=== PATIENT | female | born 1995 | race Caucasian/White ===

== ENCOUNTER 2021-03-17 09:33 | Emergency (ER) | payer OTHER, SELFPAY ==
--- NOTE | 2021-03-17 09:57 | ED.NAVMDI ---
HPI - Nausea/Vomiting/Diarrhea General Chief complaint: Nausea/Vomiting/Diarrhea Stated complaint: abd pain/diarrhea Time Seen by Provider: 03/17/21 09:58 Source: patient Mode of arrival: ambulatory Limitations: no limitations History of Present Illness HPI Narrative: Bipin Harper is a 25 yo female with no PMH who comes to the [facility] with diarrhea since Friday after returning from [place]. [facility] physician cannot get her into the office and so she is here because she says she discussed consistent diarrhea since returned on Friday- [employer] allergy ate only chicken and pasta in [place] Related Data Allergies Allergy/AdvReac Type Severity Reaction Status Date / Time Penicillins Allergy Mild RASH Verified 03/17/21 09:56 Review of Systems Review of Systems: CONSTITUTIONAL: Denies fever, chills, sweats. EYES: Denies visual changes, redness, discharge. ENT: Denies rhinorrhea, congestion, sore throat, otalgia. CARDIOVASCULAR: Denies chest pain, palpitations, edema. RESPIRATORY: Denies dyspnea, wheezing, cough GASTROINTESTINAL: Denies abdominal pain, nausea, vomiting, intermittent diarrhea, always after eating and sometimes middle of night. GENITOURINARY: Denies dysuria, hematuria, abnormal discharge SKIN: Denies rash or itching. NEUROLOGIC: Denies numbness, or focal weakness. PSYCHIATRIC: Denies anxiety or depression. [facility] Social History Social History (Updated 03/17/21 @ 10:18 by Kelly Wilson CNP) Smoking status: Never smoker Alcohol intake: current Comments At time of signature, I agree with nursing past medical, surgical, social and family history. There is no relevant family history pertinent to the presenting complaint. Exam Narrative: GENERAL: This is a well-nourished, well-developed patient, in mild distress. HEAD: normocephalic, atraumatic. EYES:. Sclera clear/white. Vision is grossly intact. EARS: External ears normal, . Hearing grossly intact. NOSE: External nose normal without nasal discharge, nares without redness, no rhinorrhea. THROAT: Mucous membranes moist, NECK: Neck supple, non-tender CARDIOVASCULAR: Regular rate and rhythm without murmurs, gallops, or rubs. RESPIRATORY: Clear to auscultation. Breath sounds equal bilaterally. No wheezes, rales, or rhonchi. GASTROINTESTINAL: Abdomen soft, non-tender, SKIN: warm, intact with no suspicious lesions or rash, good texture and turgor. NEURO: awake, alert, and oriented to person, place and time. There were no obvious focal neurologic abnormalities. Steady gait EXTREMITIES: Normal range of motion. BACK: Nontender without deformity Course Course Emergency Course: Patient here with diarrhea since returning from [place] on Friday Started on Pepto-Bismol, Imodium AD, Protonix, Zofran if diarrhea continues she is to call On Friday and asked to get a stool specimen Level of Care: Express Care Visit Vital Signs Vital signs: Vital Signs Temperature 98.1 F 03/17/21 10:00 Pulse Rate 77 03/17/21 10:00 Respiratory Rate 16 03/17/21 10:00 Blood Pressure 124/74 03/17/21 10:00 Pulse Oximetry 100 03/17/21 10:00 Temperature 98.1 F 03/17/21 10:00 Pulse Rate 77 03/17/21 10:00 Respiratory Rate 16 03/17/21 10:00 Blood Pressure 124/74 03/17/21 10:00 Pulse Oximetry 100 03/17/21 10:00 MDM - Nausea/Vomiting/Diarrhea Differential Diagnosis Differential diagnosis: Likely traveler's diarrhea, food poisoning, gastroenteritis, drug-induced nausea and vomiting, dehydration and other Lab Data Labs: Urine Glucose Negative Reference Range: Negative Urine Bilirubin Negative Reference Range: Negative Urine Ketone Negative Reference Range: Negative Urine Specific [place] 1.020
[2021-03-17 10:00] VITALS: BP 124/74; PULSE 77; RESP 16; TEMP 36.7; O2SAT 100
== END 2021-03-17 10:25 | disposition home or self-care (01) ==
PROVIDERS: Emergency Provider Nurse Practitioner
DX: K52.9 Noninfective gastroenteritis and colitis, unspecified (principal)
CPT/HCPCS: 81003; 99213; G0463

== ENCOUNTER 2021-04-09 17:55 | Emergency (ER) | payer OTHER, SELFPAY ==
[2021-04-09 18:02] VITALS: BP 134/92; PULSE 79; RESP 16; TEMP 36.8; O2SAT 99
--- NOTE | 2021-04-09 18:02 | ED.WOUNDLAC ---
HPI - Wound/Laceration General Chief Complaint: Wound/Laceration Stated Complaint: Finger Lac Time Seen by Provider: 04/09/21 18:02 Source: patient, family, RN notes reviewed and old records reviewed Mode of arrival: ambulatory Limitations: no limitations History of Present Illness HPI narrative: 25-year-old female presents to the [facility] with a skin flap to the end of her thumb, left hand. States she cut it approximately 20 minutes prior to arrival. States that she was cutting onions. Onset (ago): minute(s) (20) Related Data Home Medications Medication Instructions Recorded Confirmed No Home Medications 04/09/21 04/09/21 Allergies Allergy/AdvReac Type Severity Reaction Status Date / Time Penicillins Allergy Mild RASH Verified 03/17/21 09:56 Review of Systems Review of Systems: All systems reviewed & are unremarkable except as noted in HPI and below Constitutional: Constitutional: Reports no additional constitutional complaints, Denies chills and Denies fever(s) Eyes: Eyes: Reports no additional eye complaints ENT: Reports system reviewed and no additional complaints, except as documented Cardiovascular: Cardiovascular: Reports no additional cardiovascular complaints, Denies chest pain and Denies dyspnea Respiratory: Respiratory: Reports no additional respiratory complaints, Denies cough and Denies dyspnea Gastrointestinal: Gastrointestinal: Reports no additional gastrointestinal complaints, Denies abdominal pain, Denies nausea and Denies vomiting Musculoskeletal: Musculoskeletal: Reports no additional musculoskeletal complaints Integumentary/Breasts: Skin/Breast: Reports as per HPI and Reports wounds (skin flap) Neurologic: Reports system reviewed and no additional complaints, except as documented Psychiatric: Psychiatric: Reports no additional psychiatric complaints Allergic/Immunologic: Allergic/Immunologic: Reports no additional allergic/immunologic complaints PMFSH Social History Social History Smoking status: Never smoker Alcohol intake: current Comments At the time of my signature, I reviewed and agree with the nursing past medical, surgical, social, and family history. There is no relevant family history pertinent to the patient complaint. Exam Const: General: healthy appearing, no acute distress and alert Nutritional Appearance: well nourished Orientation/consciousness: patient oriented x3 Limitations: no limitations HENMT: Head: normal to inspection Ears: external ears normal Eyes: Pupils: Equal, round and reactive pupils present Neck: Neck: normal visual inspection, no lymphadenopathy and no meningeal signs Chest: Chest palpation & inspection: normal inspection of the chest Resp: Effort & Inspection: normal respiratory effort Auscultation: clear to auscultation bilaterally Cardio: Rate: regular rate Rhythm: regular rhythm : General: Yes no CVA tenderness Back/Spine/Pelvis: Back: no CVA tenderness Skin: General skin exam: normal color Wounds: wounds noted Other: Flap of skin and of left thumb, almost a complete avulsion. Bleeding is controlled. No redness or signs of infection. Neuro: General: patient oriented x3, moves all extremities, no meningeal signs and no focal motor deficits Cranial nerves: Yes Equal, round and reactive pupils present Speech: normal speech Gait exam (Neuro): Normal gait present Extrem: General: normal to inspection Psych: Appearance: grossly normal and well kempt Mental Status: mental status grossly normal Affect: normal affect Attitude: cooperative Thought content: Yes Normal thought content present Course Course Emergency Course: Discharge instructions reviewed with patient, as well as provided in writing per nursing staff. The instructions also include specific and strict return/GO TO THE ER as well as f/u information. All questions have been answered, and the patient deny
[2021-04-09] MEDS: TETANUS,DIPHTHERIA,AC PERTUSSIS ADULT (0.5 ML) BOOSTRIX IM (18:16)
== END 2021-04-09 18:33 | disposition home or self-care (01) ==
PROVIDERS: Emergency Provider Nurse Practitioner
DX: S61.012A Laceration without foreign body of left thumb without damage to nail, initial encounter (principal); W45.8XXA Other foreign body or object entering through skin, initial encounter; Y93.G1 Activity, food preparation and clean up; Z23 Encounter for immunization
CPT/HCPCS: 12001; 90471; 90715; 99212; G0463

== ENCOUNTER 2021-08-15 08:24 | Emergency (ER) | payer OTHER, SELFPAY ==
[2021-08-15 08:33] VITALS: BP 136/71; PULSE 73; RESP 16; TEMP 37.4; O2SAT 100
--- NOTE | 2021-08-15 08:39 | ED.URI ---
HPI - URI/Sore Throat General Chief Complaint: Upper Respiratory Infection Stated Complaint: sore throat Time Seen by Provider: 08/15/21 08:39 Source: patient Mode of arrival: ambulatory Limitations: no limitations History of Present Illness HPI Narrative: 25-year-old male presents with complaint of sore throat, intermittent postnasal drainage for 10 to 12 days. Has been taking Sharifa with no relief. States that sore throat is constant. Has been taking ibuprofen, 2 to 3 doses a day. Denies fever or chill. No cough. Concerned she may have strep or sinus infection. All systems reviewed and negative except as noted above. Related Data Home Medications Medication Instructions Recorded Confirmed escitalopram oxalate 10 mg tablet 1 tablet PO DAILY 08/15/21 08/15/21 Allergies Allergy/AdvReac Type Severity Reaction Status Date / Time Penicillins Allergy Mild RASH Verified 08/15/21 08:33 Review of Systems Review of Systems: CONSTITUTIONAL: Denies fever, chills, or sweats. EYES: Denies visual changes, redness, or discharge. ENT: Denies rhinorrhea, congestion. Reports postnasal drainage and sore throat. CARDIOVASCULAR: Denies chest pain, palpitations, or edema. RESPIRATORY: Denies cough or dyspnea. GASTROINTESTINAL: Denies abdominal pain, nausea, vomiting, or diarrhea. GENITOURINARY: Denies dysuria or hematuria. SKIN: Denies rash or itching. MUSCULOSKELETAL: Denies back pain, joint pain, or myalgia. NEUROLOGIC: Denies headache, numbness, or weakness. PSYCHIATRIC: Denies anxiety or depression. All other systems reviewed are negative, except as documented in HPI. PMFSH Social History Social History Smoking status: Never smoker Alcohol intake: current Comments At time of signature, agree with nursing past medical, surgical, social and family history. There is no relevant family history pertinent to the presenting complaint. Exam Narrative: GENERAL: This is a well-nourished, well-developed patient, in no apparent distress. HEAD: normocephalic, atraumatic. EYES: PERRL. Sclera clear/white. Vision is grossly intact. EARS: External ears normal, auditory canals clear and without drainage. Fluid to bilateral TMs, opaque, dull light reflex. NOSE: External nose normal with erythema to both nares, clear nasal drainage. THROAT: Mucous membranes moist, erythema to posterior pharynx with clear postnasal drainage. NECK: Neck supple, non-tender without lymphadenopathy, masses or thyromegaly. CARDIOVASCULAR: Regular rate and rhythm without murmurs, gallops, or rubs. RESPIRATORY: Clear to auscultation. Breath sounds equal bilaterally. No wheezes, rales, or rhonchi. SKIN: warm, Dry, intact with no suspicious lesions or rash, good texture and turgor. NEURO: awake, alert, and oriented to person, place and time. There were no obvious focal neurologic abnormalities. EXTREMITIES: No joint tenderness, effusion, or edema noted. Course Course Level of Care: Express Care Visit Vital Signs Vital signs: Vital Signs Temperature 37.4 C 08/15/21 08:33 Pulse Rate 73 08/15/21 08:33 Respiratory Rate 16 08/15/21 08:33 Blood Pressure 136/71 08/15/21 08:33 Pulse Oximetry 100 08/15/21 08:33 Oxygen Delivery Room Air 08/15/21 08:33 Temperature 37.4 C 08/15/21 08:33 Pulse Rate 73 08/15/21 08:33 Respiratory Rate 16 08/15/21 08:33 Blood Pressure 136/71 08/15/21 08:33 Pulse Oximetry 100 08/15/21 08:33 Oxygen Delivery Room Air 08/15/21 08:33 Reviewed MDM - URI/Sore Throat MDM Narrative Medical decision making narrative: Negative rapid strep. Will prescribe ABX for serous otitis media, duration of sore throat almost 2 weeks. Patient is aware of diagnosis, understands and agrees to treatment plan. Anticipatory guidance given. Patient agrees to follow-up as directed and is aware of reasons to seek care at the emergency department. Portions of
== END 2021-08-15 08:55 | disposition home or self-care (01) ==
PROVIDERS: Emergency Provider Nurse Practitioner Family
DX: J02.9 Acute pharyngitis, unspecified (principal); H65.03 Acute serous otitis media, bilateral; F41.9 Anxiety disorder, unspecified; F32.A Depression, unspecified
CPT/HCPCS: 87081; 87880; 99213; G0463

== ENCOUNTER 2021-12-31 08:21 | Emergency (ER) | payer OTHER, SELFPAY ==
--- NOTE | ~2021-12-31 | XR_ITS ---
EXAMINATION: XR ankle RT min 3V DATE: 12/31/2021 08:41 INDICATION: Lateral right ankle pain post injury TECHNIQUE: Anteroposterior, oblique, mortise, and lateral views of the right ankle were obtained. COMPARISON: None. FINDINGS: Alignment is normal. No fracture. Joint spaces are well maintained. No ankle joint effusion. There is some soft tissue swelling anterior to the ankle. IMPRESSION: 1. No osseous abnormality. Reviewed, dictated and finalized at location B. UTOR OF ESTATE IMPRESSION: 1. No osseous abnormality.
--- NOTE | 2021-12-31 08:25 | ED.LOWEXIN ---
HPI - Extremity Injury (Lower) General Stated Complaint: Right Ankle Pain Time Seen by Provider: 12/31/21 08:45 Source: patient and RN notes reviewed Mode of arrival: ambulatory Limitations: no limitations History of Present Illness HPI Narrative: 26-year-old female presents with concern for right ankle pain. Reports on Friday she rolled her ankle causing lateral and medial ankle pain. She reports it was much more swollen yesterday and the swelling has improved, however there is still some swelling. She reports she tried rest yesterday. She reports aching at rest and worsening pain weight-bearing. complaint: ankle injury Related Data Home Medications Medication Instructions Recorded Confirmed escitalopram oxalate 10 mg tablet 1 tablet PO DAILY 08/15/21 08/15/21 Allergies Allergy/AdvReac Type Severity Reaction Status Date / Time Penicillins Allergy Mild RASH Verified 08/15/21 08:33 Review of Systems Review of Systems: CONSTITUTIONAL: Denies malaise, chills, sweats, or fever. SKIN: Denies rash or itching, open skin, laceration, abrasion, redness, warmth MUSCULOSKELETAL: Reports right ankle pain and swelling NEUROLOGIC: Denies numbness, weakness All systems reviewed & are unremarkable except as noted in HPI and below PMFSH Social History Social History Smoking status: Never smoker Alcohol intake: current Comments At time of signature, agree with nursing past medical, surgical, social and family history. There is no relevant family history pertinent to the presenting complaint Exam Narrative: GENERAL: Well-appearing, well-nourished, and in no acute distress. HEAD: Normocephalic, atraumatic. EYES: PERRLA, conjunctivae clear NECK: Supple. CHEST: Speaks in full sentences. No respiratory distress. HEART: Regular rate and rhythm. Normal and equal peripheral pulses. EXTREMITIES: Right ankle, foot, digits have normal strength and sensation, normal range of motion. Mild lateral edema, no erythema or ecchymosis. 5/5 strength with ankle ended flexion and extension. Normal sensation with sensitivity to light touch and pain. Lateral ankle tenderness. No open wounds, no skin tenting, no devitalized tissue or atrophy, no trophic changes, no obvious deformity, alignment normal, nearby joints and structures intact. Distal pulses palpable and equal bilaterally, skin warm, dry, pink. Capillary refill less than 3 seconds. SKIN: Warm, dry, no rash. NEURO: Alert and oriented x3. PSYCH: Normal mood and affect Course Course Emergency Course: Patient is aware of diagnosis, understands and agrees to treatment plan. Anticipatory guidance given. Patient agrees to follow-up as directed and is aware of reasons to seek care at the emergency department. Portions of this record may have been created with voice recognition software Level of Care: Express Care Visit Vital Signs Vital signs: Reviewed. MDM - Extremity Injury (Lower) MDM Narrative Medical decision making narrative: Patients injury and pain is consistent with musculoskeletal etiology. No signs of neurological or vascular compromise on exam. Compartments and tissues are soft without signs of compartment syndrome. Pain is felt appropriate for further evaluation on an outpatient basis. Imaging Data My impression: Images reviewed, interpreted by radiologist, agree, see report. Radiologist's impression: EXAMINATION: XR ankle RT min 3V DATE: 12/31/2021 08:41 INDICATION: Lateral right ankle pain post injury TECHNIQUE: Anteroposterior, oblique, mortise, and lateral views of the right ankle were obtained. COMPARISON: None. FINDINGS: Alignment is normal.? No fracture. Joint spaces are well maintained.? No ankle joint effusion. There is some soft tissue swelling anterior to the ankle. IMPRESSION: 1. No osseous abnormality. Critical Care Time Critical Care Time Critical Care Time: No Discharge Plan Di
[2021-12-31 08:29] VITALS: BP 129/72; PULSE 81; RESP 16; TEMP 36.7; O2SAT 99
== END 2021-12-31 08:59 | disposition home or self-care (01) ==
PROVIDERS: Emergency Provider Nurse Practitioner; PCP Internal Medicine
DX: S93.401A Sprain of unspecified ligament of right ankle, initial encounter (principal); X50.9XXA Other and unspecified overexertion or strenuous movements or postures, initial encounter; F41.9 Anxiety disorder, unspecified; F32.A Depression, unspecified
CPT/HCPCS: 73610; 99213; G0463

== ENCOUNTER 2022-05-06 01:11 | Emergency (ER) | payer OTHER, SELFPAY ==
--- NOTE | ~2022-05-06 | CT_ITS ---
CT of the Abdomen and Pelvis: Indication: Abdominal pain Technique: 2.5 mm axial scans were obtained through the abdomen and pelvis following intravenous adm inistration of 100 cc of Omnipaque 350. Dose reduction technique was used on this scan by utilizing a utomated exposure control and iterative reconstruction technique. The dose-length product (DLP) was 5 29.33 mGy-cm. Findings: Scans through the lung bases are unremarkable. The liver, spleen, pancreas, gallbladder, adrenals and kidneys are within normal limits. No evidence of aortic aneurysm. No lymphadenopathy. No bowel obstruction or bowel wall thickening. There is no evidence to suggest acute appendicitis. Images through the pelvis were performed. Urinary bladder unremarkable. No adnexal mass seen. No asci iris. No ascites. Impression: No significant abnormalities seen. Reviewed, dictated and finalized at [facility]. Impression: No significant abnormalities seen.
[2022-05-06 01:15] VITALS: BP 147/88; PULSE 93; RESP 14; TEMP 36.6; O2SAT 100
[2022-05-06 03:30] LABS: Basophils Percent Auto 0.7 % (0.2-1.2); Eosinophils Absolute Auto 0.1 K/mm3 (0-0.3); Eosinophils Percent Auto 1.3 % (0-4.4); Hematocrit 38.6 % (37.0-47.0); Hemoglobin 13.3 g/dL (12.0-15.0); Lymphocytes Absolute Auto 1.63 K/mm3 (0.9-3.2); Lymphocytes Percent Auto 35.4 % (18.3-44.2); Mean Corpuscular HGB Conc 34.5 g/dl (32-36); Mean Corpuscular Hemoglobin 32.5 pg (26-34); Mean Corpuscular Volume 94.4 fl (80-100); Mean Platelet Volume 10.2 fl (7.4-10.4); Monocytes Absolute Auto 0.4 K/mm3 (0.1-0.6); Monocytes Percent Auto 9.6 % (2.6-8.5); Neutrophils Absolute Auto 2.4 K/mm3 (1.3-6.7); Platelet Count Result 255 k/mm3 (150-375); Red Blood Count 4.09 M/mm3 (4.2-5.4); Red Cell Distribution Width 11.5 % (11.5-14.5); White Blood Count 4.6 K/mm3 (4.5-10.0)
[2022-05-06 03:35] LABS: Appearance Urine Clear (Clear); Bacteria Urine None Seen /hpf; Bilirubin Urine Negative (Negative); Blood Urine 1+ (Negative); Color Urine Yellow (Yellow); Glucose Urine UA Negative (Negative); Ketones Urine Negative (Negative); Leukocyte Esterase Ur Negative LEU/UL (Negative); Nitrate Urine Negative (Negative); Non Pathogenic Casts 0-2; Protein Urine Negative (Negative); RBC Urine 0-2 /hpf (0-2); Specific Grav Ur 1.011 (1.001-1.035); Squamous Epithelial Cell Urine None seen /hpf (Few); Urobilinogen Urine 0.2 mg/dL (<2.0); WBC Urine 0-5 /hpf
[2022-05-06 03:40] LABS: Alanine Aminotransferase 16 U/L (6-35); Albumin Level 4.4 g/dL (3.5-5.1); Alkaline Phosphatase 56 U/L (38-126); Anion Gap 5 mmol/L (8-16); Aspartate Amino Transferase 19 U/L (14-36); Bilirubin,Total 0.4 mg/dL (0.2-1.3); Blood Urea Nitrogen 16 mg/dL (7-17); Calcium 8.8 mg/dL (8.4-10.2); Carbon Dioxide 25 mmol/L (22-30); Chloride 108 mmol/L (98-107); Estimated CRCL calculation 109 ml/min; Estimated Glomerular Filt Rate > 60; Glucose 109 mg/dL (65-110); Lipase 77 U/L (23-300); Potassium 4.1 mmol/L (3.4-5.0); Sodium 138 mmol/L (137-145)
[2022-05-06 03:46] LABS: Add Urine Microscopic? YES
[2022-05-06] MEDS: ONDANSETRON INJ 4 MG/2 ML VIAL IV PUSH (04:30)
[2022-05-06] MEDS: HYDROmorphone HCL INJ (*CRX) 1 MG/ML SYR 0.5 MG IV PUSH (04:31)
[2022-05-06 04:33] VITALS: BP 129/80; PULSE 71; RESP 16; O2SAT 100
--- NOTE | 2022-05-06 05:22 | ED.GENADULT ---
HPI - General Adult General Chief complaint: Abdominal Pain Stated complaint: RLQ abd pain Time Seen by Provider: 05/06/22 03:30 History of Present Illness HPI narrative: This is a 26-year-old female presenting ED with a chief complaint of abdominal pain. the pain started yesterday describes an aching/stabbing pain on the right side of her abdomen. Start in the right upper quadrant and is migrating to the right lower quadrant. It is 5/10 intensity and constant although it fluctuates in intensity throughout the day. She has never experienced pain like this before. It is improved with Motrin. Worse with movement. She has got a little nauseous although she attributes that to anxiety. She denies fever, chills, vomiting, chest pain, difficulty breathing, urinary symptoms, constipation or diarrhea. She denies vaginal discharge or risk for STDs. Related Data Home Medications Medication Instructions Recorded Confirmed escitalopram oxalate 10 mg tablet 1 tablet PO DAILY 08/15/21 12/31/21 Allergies Allergy/AdvReac Type Severity Reaction Status Date / Time Penicillins Allergy Mild RASH Verified 12/31/21 09:16 [facility] Past Medical History Medical History (Updated 05/06/22 @ 07:18 by Timothy Chowdary MD) Healthy adult Social History Social History Smoking status: Never smoker Alcohol intake: current Exam Narrative: APPEARANCE: No apparent distress. Head: atraumatic. EYES: EOMI, NOSE: Atraumatic NECK: Trachea midline RESPIRATORY: No increased rate of breathing , clear to auscultation bilateral CARDIOVASCULAR: RRR, ABDOMINAL: Mild tenderness on the right side of the abdomen between the right upper and lower quadrants. No CVA tenderness. No adnexal tenderness. No guarding or rebound. MUSCULOSKELETAl: No obvious deformities NEURO: Alert. Moving 4/4 extremities SKIN:: Warm, dry. Normal color PSYCHIATRIC: Normal affect Course Vital Signs Vital signs: Vital Signs Temperature 97.8 F 05/06/22 01:15 Pulse Rate 93 05/06/22 01:15 Respiratory Rate 14 05/06/22 01:15 Blood Pressure 147/88 H 05/06/22 01:15 Pulse Oximetry 100 05/06/22 01:15 Oxygen Delivery Room Air 05/06/22 01:15 Temperature 97.8 F 05/06/22 01:15 Pulse Rate 93 03/20/23 01:15 Respiratory Rate 14 05/06/22 01:15 Blood Pressure 147/88 H 05/06/22 01:15 Pulse Oximetry 100 05/06/22 01:15 Oxygen Delivery Room Air 05/06/22 01:15 Medical Decision Making MDM Narrative Medical decision making narrative: -Presentation: is a 26-year-old female presenting with abdominal pain on the right side. -DDX includes but is not limited to: Kidney stones, muscle strain, appendicitis, ovarian pathology -Co-morbidities complicating care: anxiety -Social determinants of health: patient works in [employer], lives with her boyfriend Niraj -External Chart Review: none -Hx from independent Sources: boyfriend Niraj at bedside -Discussion of Management/Consultants: none -Independent interpretation of studies: CBC within normal limits. CMP within normal limits. Lipase normal. Urinalysis not indicative affection. CT abdomen pelvis did not reveal evidence of kidney stones, appendicitis gallbladder pathology or ovarian pathology. Significant fecal burden in the right side of the abdomen. Upon re-evaluation the patient's pain has completely improved. Her vital signs are normal. I am unable to elicit tenderness on palpation. Dx tests considered but not ordered: -Procedures: -Interventions: Zofran 4 mg, Dilaudid 0.5 mg, 1000 mg Tylenol -Shared decision making / Disposition: Upon re-evaluation the patient's pain has completely improved. Her vital signs are normal. I am unable to elicit tenderness on palpation. At this time I have not discovered a reason for her pain. I have encouraged her to return to the emergency department if she develops right-sided reg
[2022-05-06 05:25] LABS: Pregnancy On Board Control Positive; Urine Pregnancy Test Negative
[2022-05-06 05:30] VITALS: BP 124/80; PULSE 75; RESP 16; O2SAT 100
== END 2022-05-06 07:51 | disposition home or self-care (01) ==
PROVIDERS: Emergency Provider Emergency Medicine; PCP Internal Medicine
DX: R10.31 Right lower quadrant pain (principal); R10.11 Right upper quadrant pain
CPT/HCPCS: 36415; 74177; 80053; 81001; 81025; 83690; 85025; 96374; 96375; 99284; J0131; J1170; J2405; Q9967

== ENCOUNTER 2022-07-03 11:11 | Emergency (ER) | payer OTHER, SELFPAY ==
[2022-07-03 11:18] VITALS: BP 133/82; PULSE 97; RESP 16; TEMP 37.3; O2SAT 99
--- NOTE | 2022-07-03 11:18 | ED.URI ---
HPI - URI/Sore Throat General Chief Complaint: Upper Respiratory Infection Stated Complaint: Sore Throat/Headache/Fever Time Seen by Provider: 07/03/22 11:19 Source: patient Mode of arrival: ambulatory Limitations: no limitations History of Present Illness HPI Narrative: Bipin is a 26-year-old female patient presenting to the clinic today with complaints of sore throat, headache, and fever x1 day. She reports highest temp was a 100? F. Reports that her fiance is having similar symptoms and he was seen at another urgent care and diagnosed with a sinus infection but she states they did not do any testing for him. MD elicited complaint: fever, sore throat, nasal congestion and other (Headache) Related Data Home Medications Medication Instructions Recorded Confirmed escitalopram oxalate 10 mg tablet 1 tablet PO DAILY 08/15/21 07/03/22 Allergies Allergy/AdvReac Type Severity Reaction Status Date / Time Penicillins Allergy Mild RASH Verified 07/03/22 11:28 Review of Systems Review of Systems: Pertinent positives per HPI. Patient denies any rash, visual changes, dizziness, cough, shortness of breath, chest pain, palpitations, nausea, vomiting, diarrhea, constipation, abdominal pain, or any urinary issues. [facility] Past Medical History Medical History (Updated 07/03/22 @ 11:41 by Tarik Early APRN) Healthy adult Social History Social History Smoking status: Never smoker Alcohol intake: current Comments At the time of my signature, I reviewed and agree with the nursing past medical, surgical, social, and family history. There is no relevant family history pertinent to the patient complaint. Exam Narrative: General: Well-developed, well nourished, in no apparent distress Head: Normocephalic, atraumatic Eyes: Pupils equally round and reactive to light bilaterally, EOM intact, sclera and conjunctive clear, no discharge, lids normal Ears: TMs intact and congested, ear canals clear, no drainage, grossly hearing normal. Nose: Nares patent, clear nasal discharge, no inflammation, no sinus tenderness. Mouth: Oral pharynx red without lesions or masses, good dentition, MMM. Neck: Supple, trachea midline, no enlargement of anterior or posterior cervical nodes, no thyroid masses or goiter palpable. Cardio: Regular rate and rhythm, s1 and s2 normal, no murmur appreciated. Resp: Clear to auscultation bilaterally, no rhonchi, rales, wheezing or rubs Course Course Emergency Course: Portions of this record may have been created with voice recognition software. Level of Care: Express Care Visit Vital Signs Vital signs: Vital signs reviewed MDM - URI/Sore Throat MDM Narrative Medical decision making narrative: At the time of visit patient is resting comfortably on the exam table. Influenza, COVID, strep screen was obtained and all were negative. Will send strep for culture. I suspect patient has viral syndrome/URI/pharyngitis. Supportive measures were discussed with the patient she voiced understanding of the discharge instructions and agrees to treatment plan. Differential Diagnosis Differential diagnosis: Likely upper respiratory infection, otitis media, sinusitis, viral infection, bronchitis, influenza, pharyngitis and other (COVID) Discharge Plan Discharge Clinical Impression: Upper respiratory infection, Pharyngitis, Viral infection Patient Disposition: Home, Self-Care Condition: Stable Instructions: Antibiotic Form, Pharyngitis (ED), Upper Respiratory Infection (ED), Viral Syndrome (ED) Additional Instructions: COVID, influenza, and strep test were all negative in the clinic today. We will send strep for culture if this comes back positive we will contact you in place you on antibiotics at that time. May take DayQuil/NyQuil for cold/flu symptoms Increase fluids and stay well hydrated Tylenol/motrin for pain/f
== END 2022-07-03 11:45 | disposition home or self-care (01) ==
PROVIDERS: Emergency Provider Nurse Practitioner Family; PCP Internal Medicine
DX: J06.9 Acute upper respiratory infection, unspecified (principal); J02.9 Acute pharyngitis, unspecified; B34.9 Viral infection, unspecified; Z20.822 Contact with and (suspected) exposure to COVID-19
CPT/HCPCS: 87081; 87426; 87804; 87880; 99213; C9803; G0463

== ENCOUNTER 2022-07-23 17:20 | Emergency (ER) | payer OTHER, SELFPAY ==
[2022-07-23 17:28] VITALS: BP 134/81; PULSE 70; RESP 16; TEMP 37.4; O2SAT 100
--- NOTE | 2022-07-23 17:31 | ED.GENADULT ---
HPI - General Adult General Chief complaint: Upper Respiratory Infection Stated complaint: Pain in right ear and sore throat Time Seen by Provider: 07/23/22 17:34 Source: patient, RN notes reviewed and old records reviewed Mode of arrival: ambulatory Limitations: no limitations History of Present Illness HPI narrative: 26-year-old female presents to the [facility] with complaints of right ear pain and a sore throat. Patient states it has been going on for about a week. States she wanted to be better for wetting so she started taking her boyfriend's amoxicillin that he had left over. Has taken 5 days, total of 10 doses. States that she feels like she has stuff coming out her right ear and it is painful. States that she has had a sore throat but denies any redness to the area but started taking the amoxicillin. Denies any fevers. No other treatment prior to arrival Onset (ago): week(s) (1) Related Data Home Medications Medication Instructions Recorded Confirmed escitalopram oxalate 10 mg tablet 1 tablet PO DAILY 08/15/21 07/23/22 Allergies Allergy/AdvReac Type Severity Reaction Status Date / Time Penicillins Allergy Mild RASH Verified 07/23/22 17:29 Review of Systems Review of Systems: All systems reviewed & are unremarkable except as noted in HPI and below Constitutional: Constitutional: Reports no additional constitutional complaints Eyes: Eyes: Reports no additional eye complaints ENT: Reports as per HPI, Reports ear discharge, Reports otalgia and Reports sore throat Cardiovascular: Cardiovascular: Reports no additional cardiovascular complaints, Denies chest pain and Denies dyspnea Respiratory: Respiratory: Reports no additional respiratory complaints, Denies chest congestion, Denies cough and Denies dyspnea Gastrointestinal: Gastrointestinal: Reports no additional gastrointestinal complaints, Denies abdominal pain, Denies nausea and Denies vomiting Musculoskeletal: Musculoskeletal: Reports no additional musculoskeletal complaints Integumentary/Breasts: Skin/Breast: Reports system reviewed and no additional complaints, except as docu Neurologic: Reports system reviewed and no additional complaints, except as documented Psychiatric: Psychiatric: Reports no additional psychiatric complaints Allergic/Immunologic: Allergic/Immunologic: Reports no additional allergic/immunologic complaints PMF Past Medical History Medical History Healthy adult Social History Social History Smoking status: Never smoker Alcohol intake: current Comments At the time of my signature, I reviewed and agree with the nursing past medical, surgical, social, and family history. There is no relevant family history pertinent to the patient complaint. Exam Const: General: cooperative, healthy appearing, comfortable, no acute distress, well developed, alert and well nourished Nutritional Appearance: well nourished Orientation/consciousness: patient oriented x3 Limitations: no limitations HENMT: Head: normal to inspection Ears: hearing grossly normal bilaterally, external ears normal, TM's normal bilaterally, EAC's normal (Small amount of ear wax noted right only but otherwise normal), mastoids normal and no periauricular adenopathy Face/Nose/Sinus: Normal external nose present, Normal nares present, Normal nasal mucous membranes and turbinates present and normal facial exam Face and sinus: normal facial exam Mouth: Yes Normal oral and palatal mucosa present, Yes lip normal and Yes moist mucous membranes Throat: posterior oropharynx normal, tonsils normal, uvula midline and postnasal drainage Eyes: General: appearance normal, both eyes and all related structures Alignment and Position: alignment normal Periorbital: periorbital findings normal Pupils: Equal, round and reactive pupils present EOM: EOMs intact bilaterally
== END 2022-07-23 17:51 | disposition home or self-care (01) ==
PROVIDERS: Emergency Provider Nurse Practitioner; PCP Internal Medicine
DX: R09.82 Postnasal drip (principal); H65.03 Acute serous otitis media, bilateral
CPT/HCPCS: 99213; G0463

== ENCOUNTER 2022-10-29 13:57 | Emergency (ER) | payer OTHER, SELFPAY ==
[2022-10-29 14:09] VITALS: BP 147/86; PULSE 98; RESP 16; TEMP 37.3; O2SAT 99
--- NOTE | 2022-10-29 15:08 | ED.GENADULT ---
HPI - General Adult General Chief complaint: Upper Respiratory Infection Stated complaint: Cough/Bodyaches Source: patient Mode of arrival: ambulatory Limitations: no limitations History of Present Illness HPI narrative: Patient presents for evaluation of sick symptoms since last night. She initially thought her allergies were bothering her. She woke from sleep this morning with a tickle in her throat. She now reports a sore throat, nonproductive cough, headache and body aches. No fever, chills, nausea, vomiting. Denies shortness of breath per se but states that she does feel a bit winded at the end of speaking long sentences. No recent sick contacts to her knowledge. She tried taking Mucinex which did not help. She does not smoke. Related Data Home Medications Medication Instructions Recorded Confirmed escitalopram oxalate 10 mg tablet 1 tablet PO DAILY 08/15/21 10/29/22 Allergies Allergy/AdvReac Type Severity Reaction Status Date / Time Penicillins Allergy Mild RASH Verified 10/29/22 14:56 Review of Systems Review of Systems: CONSTITUTIONAL: Denies fever, chills, or sweats. EYES: Denies visual changes, redness, or discharge. ENT: Reports sore throat. Denies rhinorrhea, congestion, or otalgia. CARDIOVASCULAR: Denies chest pain, palpitations, or edema. RESPIRATORY: Reports nonproductive cough. Denies shortness of breath GASTROINTESTINAL: Denies abdominal pain, nausea, vomiting, or diarrhea. GENITOURINARY: Denies dysuria or hematuria. SKIN: Denies rash or itching. MUSCULOSKELETAL: Reports generalized body aches. NEUROLOGIC: Reports headache. Denies numbness, dizziness, or weakness. PSYCHIATRIC: Denies anxiety or depression. [facility] Past Medical History Medical History Anxiety Healthy adult Surgical History Surgical History No pertinent past surgical history Family History Family History (Updated 10/29/22 @ 15:12 by JESSY Hardy, GERMAINE) Mother Family history non-contributory Social History Social History Smoking status: Never smoker Alcohol intake: current Substance use: never Additional living arrangements comments: Lives with fiance Gender identity (if verbalized by the patient): Female Sexual Orientation (if Verbalized by the Patient): Straight or Heterosexual Spiritual care concerns: No Exam Narrative: GENERAL: Well-appearing, well-nourished, and in no acute distress. HEAD: Normocephalic, atraumatic. EYES: PERRLA and EOMI. ENT: Nares clear, no rhinorrhea or epistaxis. Mucous membranes moist. Oropharynx without tonsillar hypertrophy exudate or other lesions. Bilateral TMs pearly rodríguez nonbulging NECK: Supple. No adenopathy or masses. No carotid bruits or JVD CHEST: Clear to auscultation. No respiratory distress. No wheezes rales or rhonchi HEART: Regular rate and rhythm. No murmur heard. Normal peripheral pulses. ABDOMEN: Soft, nontender, nondistended, normal active bowel sounds. EXTREMITIES: Normal range of motion. No edema. SKIN: Warm, dry, no rash. NEURO: No focal deficits. Alert and oriented x3. PSYCH: Normal mood and affect. Course Course Emergency Course: This is a 27-year-old female who presented for evaluation of sick symptoms. Strep, COVID, influenza were all negative. Exam is consistent with acute viral syndrome. Recommend Tessalon Perles. Increase hydration. [id number] agents for symptom management. Follow up with primary provider. Go to the emergency department for worsening symptoms. Patient in agreement with plan of care. Level of Care: Express Care Visit Vital Signs Vital signs: Vital Signs Temperature 37.3 C 10/29/22 14:09 Pulse Rate 98 10/29/22 14:09 Respiratory Rate 16 10/29/22 14:09 Blood Pressure 147/86 H 10/29/22
== END 2022-10-29 15:20 | disposition home or self-care (01) ==
PROVIDERS: Emergency Provider Nurse Practitioner; PCP Internal Medicine
DX: B34.9 Viral infection, unspecified (principal); Z20.822 Contact with and (suspected) exposure to COVID-19
CPT/HCPCS: 87081; 87426; 87804; 87880; 99213; C9803; G0463

== ENCOUNTER 2023-12-21 11:44 | Emergency (ER) | payer OTHER, SELFPAY ==
[2023-12-21 12:01] VITALS: BP 139/70; PULSE 97; RESP 16; TEMP 37; O2SAT 99
--- NOTE | 2023-12-21 12:09 | ED.SKABFB ---
HPI - Skin/Abscess/Foreign Bdy General Chief complaint: Skin/Abscess/Foreign Body Stated complaint: armpit irritation/lump Time Seen by Provider: 12/21/23 12:09 Source: patient, RN notes reviewed and old records reviewed Mode of arrival: ambulatory Limitations: no limitations History of Present Illness HPI narrative: 28-year-old female who is 12 weeks presents to the [facility] with irritation and a lump to the axilla. States that she switched underarm deodorant recently. Small reddened mom's noted to the hair follicles, no fluctuance, no increased redness, no significant swelling noted to either axilla. Related Data Allergies Allergy/AdvReac Type Severity Reaction Status Date / Time Penicillins Allergy Mild RASH Verified 12/21/23 12:08 Review of Systems Review of Systems: All systems reviewed & are unremarkable except as noted in HPI and below Constitutional: Constitutional: Reports no additional constitutional complaints ENT: Reports system reviewed and no additional complaints, except as documented Cardiovascular: Cardiovascular: Reports no additional cardiovascular complaints, Denies chest pain and Denies dyspnea Respiratory: Respiratory: Reports no additional respiratory complaints, Denies chest congestion, Denies cough and Denies dyspnea Gastrointestinal: Gastrointestinal: Reports no additional gastrointestinal complaints, Denies abdominal pain, Denies nausea and Denies vomiting Musculoskeletal: Musculoskeletal: Reports no additional musculoskeletal complaints Integumentary/Breasts: Skin/Breast: Reports as per HPI [facility] Past Medical History Medical History Anxiety Healthy adult Surgical History Surgical History No pertinent past surgical history Family History Family History Mother Family history non-contributory Social History Social History Smoking status: Never smoker Alcohol intake: current Substance use: never Additional living arrangements comments: Lives with fiance Gender identity (if verbalized by the patient): Female Sexual Orientation (if Verbalized by the Patient): Straight or Heterosexual Spiritual care concerns: No Comments At the time of my signature, I reviewed and agree with the nursing past medical, surgical, social, and family history. There is no relevant family history pertinent to the patient complaint. Exam Const: General: cooperative, healthy appearing, comfortable, no acute distress, well developed, alert and well nourished Nutritional Appearance: well nourished Orientation/consciousness: patient oriented x3 Limitations: no limitations HENMT: Head: normal to inspection Ears: hearing grossly normal bilaterally and external ears normal Face/Nose/Sinus: Normal external nose present, normal facial exam and face symmetric Face and sinus: normal facial exam and face symmetric Eyes: General: appearance normal, both eyes and all related structures Alignment and Position: alignment normal Periorbital: periorbital findings normal Neck: Neck: normal visual inspection, full ROM, no lymphadenopathy and no meningeal signs Chest: Chest palpation & inspection: normal inspection of the chest Resp: Effort & Inspection: normal respiratory effort and able to speak in complete sentences Cardio: Rate: regular rate Skin: General skin exam: normal color and no rashes or lesions noted Lesions: no lesions Rashes: no rashes Wounds: no wounds Other: Small reddened comes to the hair follicles bilateral axilla without significant cellulitic changes. No fluctuance. No significant swelling Neuro: General: patient oriented x3, gait normal, tone normal, moves all extremities and no meningeal signs Cognition (Neuro): normal cognition Speech: normal speech Gait exam (Neuro): Normal gait present Extrem: General: normal to inspection, full ROM, capillary refill normal and normal gait Psych: Appearance: grossly normal and well kempt Mental Status: mental status grossly normal Speech and movement: Normal speech and movement present and Clear speech present Affect: normal affect Attitude: cooperative Course Course Level of Care: Express Care Visit Vital Signs Vital signs: Vital Signs Temperature 98.6 F 12/21/23 12:01 Pulse Rate 97 12/21/23 12:01 Respiratory Rate 16 12/21/23 12:01 Blood Pressure 139/70 12/21/23 12:01 Pulse Oximetry 99 12/21/23 12:01 Oxygen Delivery Room Air 12/21/23 12:01 Temperature 98.6 F 12/21/23 12:01 Pulse Rate 97 12/21/23 12:01 Respiratory Rate 16 12/21/23 12:01 Blood Pressure 139/70 12/21/23 12:01 Pulse Oximetry 99 12/21/23 12:01 Oxygen Delivery Room Air 12/21/23 12:01 Reviewed MDM - Skin/Abscess/Foreign Bdy MDM Narrative Medical decision making narrative: Patient sitting comfortably in exam room. Nontoxic, vitals stable. Patient in no acute distress Patient 12 weeks concern for infection of the axillas. Most likely irritation versus folliculitis to the bilateral armpits. Prescribing topical clindamycin Patient appropriate for outpatient treatment follow-up Discharge instructions reviewed with patient, as well as provided in writing per nursing staff. The instructions also include specific and strict return/GO TO THE ER as well as f/u information. All questions have been answered, and the patient deny any further questions with discharge and discharge plan. Some parts of this dictation were generated by voice recognition software and may contain typographical and/or grammatical inaccuracies. Differential Diagnosis Differential diagnosis: Likely abscess of skin or subcutaneous tissue, cellulitis, impetigo, contact dermatitis and other (Folliculitis) Critical Care Time Critical Care Time Critical Care Time: No Discharge Plan Discharge Clinical Impression: Folliculitis Patient Disposition: Home, Self-Care Condition: Stable Instructions: Antibiotic Form, Folliculitis (ED) Additional Instructions: Wash area twice daily with warm soapy water, preferably Dial soap. Apply the clindamycin topical. Follow-up with data processing specialist New or worsening symptoms go directly to the emergency room Patient Language: Turkish Prescriptions: New clindamycin phosphate 1 % solution 1 applic topical BID 7 Days Qty: 60 0RF Follow-up/Referrals: PHYSICIAN NOT ON STAFF,NONSTAFF [Primary Care Provider] - Stand Alone Forms: Work/School Release IP Time of Disposition: 12:28
== END 2023-12-21 12:40 | disposition home or self-care (01) ==
PROVIDERS: Emergency Provider Nurse Practitioner
DX: O99.711 Diseases of the skin and subcutaneous tissue complicating pregnancy, first trimester (principal); Z3A.12 12 weeks gestation of pregnancy; L73.9 Follicular disorder, unspecified
CPT/HCPCS: 99213; G0463

== ENCOUNTER 2024-11-16 16:50 | Emergency (ER) | payer OTHER, SELFPAY ==
--- NOTE | ~2024-11-16 | CT_ITS ---
CT HEAD NON-CONTRAST Clinical History: dizziness, headache Comparison: None Technique: Unenhanced axial images skull base to vertex Coronal, sagittal reformats CT images acquired with automatic exposure control for dose reduction DLP: 681 mGy-cm Findings: Sulci, ventricles: Unremarkable. No intracerebral hemorrhage. No evidence acute territorial infarct. No mass effect, midline shift. Bony calvarium intact. Visualized paranasal sinuses: Clear. Mastoid air cells: Clear. IMPRESSION: 1. No acute intracranial findings. Reviewed, dictated and finalized at location R.
[2024-11-16 17:07] VITALS: BP 118/79; PULSE 89; RESP 18; TEMP 36.7; O2SAT 99
--- NOTE | 2024-11-16 17:13 | ED.DIZZY ---
HPI - Dizziness General Chief Complaint: Dizziness <Yaritzavirginia Min APRN - Last Filed: 11/16/24 17:15> Stated Complaint: 4 mo dizziness worsening, head pressure <Yaritzavirginia Min APRN - Last Filed: 11/16/24 17:15> Time Seen by Provider: 11/16/24 17:14 <Yaritza Min [employer]IOR [employer] OFFICER - Last Filed: 11/16/24 17:15> Focused HPI: Patient is a 29-year-old male who presents to the ER with complaints dizziness, headache, and vertigo. She reports her symptoms started after she gave approximately 4 months ago, but have worsened over the past day. Patient reports ?I feel drunk even though I am not. She reports her symptoms improved when she is moving but when she is still the dizziness increases. Patient denies any other medical history relevant to this ER visit. GENERAL: Well-appearing, well-nourished, and in no acute distress. HEAD: Normocephalic, atraumatic. CHEST: Clear to auscultation. ?No respiratory distress. HEART: Regular rate and rhythm.? NEURO: ?Alert and oriented x3. Patient screened in triage and initial orders placed.? ?Additional care and disposition to be based upon?diagnostic testing and treatment. <Yaritza Min APRN - Last Filed: 11/16/24 17:15> Focused HPI: Patient is a 29-year-old female who presents to the ER with complaints dizziness, headache, and vertigo. She reports her symptoms started after she gave approximately 4 months ago, but have worsened over the past day. Patient reports ?I feel drunk even though I am not. She reports her symptoms improved when she is moving but when she is still the dizziness increases. Patient denies any other medical history relevant to this ER visit. GENERAL: Well-appearing, well-nourished, and in no acute distress. HEAD: Normocephalic, atraumatic. CHEST: Clear to auscultation. ?No respiratory distress. HEART: Regular rate and rhythm.? NEURO: ?Alert and oriented x3. Patient screened in triage and initial orders placed.? ?Additional care and disposition to be based upon?diagnostic testing and treatment. <Saeed Phillips MD - Last Filed: 11/16/24 22:41> History of Present Illness HPI Narrative: Agree with HPI <Saeed Phillips MD - Last Filed: 11/16/24 22:41> Related Data Allergies/Adverse Reactions: Allergies Allergy/AdvReac Type Severity Reaction Status Date / Time Penicillins Allergy Mild RASH Verified 11/16/24 17:06 <Yaritza Min APRN - Last Filed: 11/16/24 17:15> Review of Systems Review of Systems: Gen.: Denies fevers or chills Eyes: Denies eye pain or visual change ENT: Denies congestion Respiratory: Denies shortness of breath or cough CV: Denies chest pain or palpitations GI: Denies abdominal pain nausea, emesis or diarrhea denies burning, urgency, frequency or hematuria Musculoskeletal: Denies back pain or muscle pain Neuro: Denies numbness, tingling, weakness or focal weakness Skin: Denies rash Except as documented, all other systems reviewed and negative <Saeed Phillips MD - Last Filed: 11/16/24 22:41> [facility] Past Medical History Medical History: Medical History Anxiety Healthy adult <Yaritza Min APRN - Last Filed: 11/16/24 17:15> Surgical History Surgical History: Surgical History No pertinent past surgical history <Yaritza Min APRN - Last Filed: 11/16/24 17:15> Family History Family History: Family History Mother Family history non-contributory <Yaritza Min APRN - Last Filed: 11/16/24 17:15> Social History Social History: Social History Smoking status: Never smoker Alcohol intake: current Substance use: never Additional living arrangements comments: Lives with fiance Gender identity (if verbalized by the patient): Female Sexual Orientation (if Verbalized by the Patient): Straight or Heterosexual Spiritual care concerns: No <Yaritza Min APRN - Last Filed: 11/16/24 17:15> Exam Narrative: APPEARANCE: No acute distress, nontoxic, resting in bed EYES: EOMI HEENT: Normocephalic, atraumatic, OMM RESPIRATORY: No respiratory distress Clear to auscultation bilaterally with no rhonchi wheezing or rales. CARDIOVASCULAR: Regular rate and rhythm without murmurs rubs or gallops. ABDOMINAL: Soft, nontender, nondistended, no rebound or guarding MUSCULOSKELETAl: Moves all extremities. No clubbing, cyanosis or edema. NEURO: Awake and alert. Following commands, speech normal, no focal deficits SKIN:: Warm, dry. No rashes lesions or abrasions PSYCHIATRIC: Normal affect/mood, <Saeed Phillips MD - Last Filed: 11/16/24 22:41> Course Vital Signs Vital signs: Vital Signs Temperature 98.0 F 11/16/24 17:07 Pulse Rate 89 11/16/24 17:07 Respiratory Rate 18 11/16/24 17:07 Blood Pressure 118/79 11/16/24 17:07 Pulse Oximetry 99 11/16/24 17:07 Oxygen Delivery Room Air 11/16/24 17:07 Temperature 98.7 F 11/16/24 21:20 Pulse Rate 73 11/16/24 21:20 Respiratory Rate 15 11/16/24 21:20 Blood Pressure 126/88 11/16/24 21:20 Pulse Oximetry 96 11/16/24 21:20 Oxygen Delivery Room Air 11/16/24 17:07 <Yaritza Min APRN - Last Filed: 11/16/24 17:15> Vital Signs Temperature 98.0 F 11/16/24 17:07 Pulse Rate 89 11/16/24 17:07 Respiratory Rate 18 11/16/24 17:07 Blood Pressure 118/79 11/16/24 17:07 Pulse Oximetry 99 11/16/24 17:07 Oxygen Delivery Room Air 11/16/24 17:07 Temperature 98.7 F 11/16/24 21:20 Pulse Rate 73 11/16/24 21:20 Respiratory Rate 15 11/16/24 21:20 Blood Pressure 126/88 11/16/24 21:20 Pulse Oximetry 96 11/16/24 21:20 Oxygen Delivery Room Air 11/16/24 17:07 <Saeed Phillips MD - Last Filed: 11/16/24 22:41> MDM - Dizziness MDM Narrative Medical decision making narrative: 29-year-old female presenting for dizziness. Initial evaluation the patient was in acute distress, afebrile, hemodynamically stable. She had a nonfocal neuro exam. Heart and lungs clear. Abdomen soft and nontender. CBC and CMP without significant abnormalities. UA consistent contamination. CT head obtained showed no acute process. Patient's symptoms are most consistent vertigo. She was offered meclizine. Patient was also educated that there are no known studies on the potential adverse effects of meclizine and breast milk. Current recommendations are to monitor the infant for drowsiness and agitation. Patient was understanding of the potential risks and does request the meclizine at this time. She was given a take-home dose of meclizine. She was given a prescription for. She was advised follow-up with PCP in the next week for re-evaluation. Patient agreeable to this plan. Given strict return precautions. <Saeed Phillips MD - Last Filed: 11/16/24 22:41> Differential Diagnosis Differential diagnosis: Likely benign paroxysmal positional vertigo, orthostatic hypotension, cerebrovascular accident, transient cerebral ischemia and other (Mass) <Saeed Phillips MD - Last Filed: 11/16/24 22:41> Medical Records Attestation: I reviewed the patient's medical records. <Saeed Phillips MD - Last Filed: 11/16/24 22:41> Lab Data Attestation: I reviewed the patient's lab results. <Saeed Phillips MD - Last Filed: 11/16/24 22:41> Result diagrams: 11/16/24 17:22 11/16/24 17:22 <Yaritza Min APRN - Last Filed: 11/16/24 17:15> Labs: Lab Results 11/16/24 11/16/24 Range/Units 17:22 19:04 WBC 6.2 (4.5-10.0) K/mm3 RBC 4.25 (4.2-5.4) M/mm3 Hgb 13.5 (12.0-15.0) g/dL Hct 40.2 (37.0-47.0) % MCV 94.6 (80-100) fl MCH 31.8 (26-34) pg MCHC 33.6 (32-36) g/dl RDW 11.4 L (11.5-14.5) % Plt Count 287 (150-375) k/mm3 MPV 9.7 (7.4-10.4) fl Immature Gran % (Auto) 0.2 (0-0.5) % Neut % (Auto) 52.2 (45.5-73.1) % Lymph % (Auto) 37.7 (18.3-44.2) % [place] % (Auto) 7.7 (2.6-8.5) % Eos % (Auto) 1.9 (0-4.4) % Baso % (Auto) 0.3 (0.2-1.2) % Lymph # (Auto) 2.35 (0.9-3.2) K/mm3 [place] # (Auto) 0.5 (0.1-0.6) K/mm3 Eos # (Auto) 0.1 (0-0.3) K/mm3 Baso # (Auto) 0.0 (0.0-0.1) K/mm3 Abs Immat Gran (auto) 0.01 (0.00-0.031) K/mm3 Absolute Neuts (auto) 3.3 (1.3-6.7) K/mm3 Absolute Nucleated RBC 0.000 (0.0-0.012) K/mm3 Nucleated RBC % 0.0 (0.0-0.2) % Sodium 138 (137-145) mmol/L Potassium 4.0 (3.4-5.0) mmol/L Chloride 103 (98-107) mmol/L Carbon Dioxide 26 (22-30) mmol/L Anion Gap 9 (4-12) mmol/L BUN 15 (7-17) mg/dL Creatinine 0.57 L (0.7-1.0) mg/dL Estim Creat Clear Calc 134 ml/min Estimated GFR > 60 (59 - ) Glucose 126 H (65-110) mg/dL Calcium 9.0 (8.4-10.2) mg/dL Total Bilirubin 0.3 (0.2-1.3) mg/dL AST 29 (14-36) U/L ALT 33 (6-35) U/L Alkaline Phosphatase 63 (38-126) U/L Total Protein 8.3 H (6.3-8.2) g/dL Albumin 4.9 (3.5-5.1) g/dL Urine Color Yellow (Yellow) Urine Appearance Cloudy H (Clear) Urine pH 6.5 (5.0-9.0) Ur Specific [place] 1.023 (1.001-1.035) Urine Protein Negative (Negative) mg/dL Urine Glucose (UA) Negative (Negative) mg/dL Urine Ketones Negative (Negative) mg/dL Ur Blood (Man) Negative (Negative) Urine Nitrate Negative (Negative) Urine Bilirubin Negative (Negative) Urine Urobilinogen 0.2 (<2.0) mg/dL Add Ur Microanalysis Reviewed Leukocyte Esterase Rfl Negative (Negative) TEJAS/UL Urine RBC 6-10 H (0-2) /hpf Urine WBC 0-5 (0-3) /hpf Ur Squamous Epith Cells Moderate (Few) /hpf Urine Bacteria 1+ H /hpf Urine Casts 0-2 Urine Test Negative <Yaritza Min, S[employer]IOR [employer] OFFICER - Last Filed: 11/16/24 17:15> Lab Results 11/16/24 11/16/24 Range/Units 17:22 19:04 WBC 6.2 (4.5-10.0) K/mm3 RBC 4.25 (4.2-5.4) M/mm3 Hgb 13.5 (12.0-15.0) g/dL Hct 40.2 (37.0-47.0) % MCV 94.6 (80-100) fl MCH 31.8 (26-34) pg MCHC 33.6 (32-36) g/dl RDW 11.4 L (11.5-14.5) % Plt Count 287 (150-375) k/mm3 MPV 9.7 (7.4-10.4) fl Immature Gran % (Auto) 0.2 (0-0.5) % Neut % (Auto) 52.2 (45.5-73.1) % Lymph % (Auto) 37.7 (18.3-44.2) % [place] % (Auto) 7.7 (2.6-8.5) % Eos % (Auto) 1.9 (0-4.4) % Baso % (Auto) 0.3 (0.2-1.2) % Lymph # (Auto) 2.35 (0.9-3.2) K/mm3 [place] # (Auto) 0.5 (0.1-0.6) K/mm3 Eos # (Auto) 0.1 (0-0.3) K/mm3 Baso # (Auto) 0.0 (0.0-0.1) K/mm3 Abs Immat Gran (auto) 0.01 (0.00-0.031) K/mm3 Absolute Neuts (auto) 3.3 (1.3-6.7) K/mm3 Absolute Nucleated RBC 0.000 (0.0-0.012) K/mm3 Nucleated RBC % 0.0 (0.0-0.2) % Sodium 138 (137-145) mmol/L Potassium 4.0 (3.4-5.0) mmol/L Chloride 103 (98-107) mmol/L Carbon Dioxide 26 (22-30) mmol/L Anion Gap 9 (4-12) mmol/L BUN 15 (7-17) mg/dL Creatinine 0.57 L (0.7-1.0) mg/dL Estim Creat Clear Calc 134 ml/min Estimated GFR > 60 (59 - ) Glucose 126 H (65-110) mg/dL Calcium 9.0 (8.4-10.2) mg/dL Total Bilirubin 0.3 (0.2-1.3) mg/dL AST 29 (14-36) U/L ALT 33 (6-35) U/L Alkaline Phosphatase 63 (38-126) U/L Total Protein 8.3 H (6.3-8.2) g/dL Albumin 4.9 (3.5-5.1) g/dL Urine Color Yellow (Yellow) Urine Appearance Cloudy H (Clear) Urine pH 6.5 (5.0-9.0) Ur Specific [place] 1.023 (1.001-1.035) Urine Protein Negative (Negative) mg/dL Urine Glucose (UA) Negative (Negative) mg/dL Urine Ketones Negative (Negative) mg/dL Ur Blood (Man) Negative (Negative) Urine Nitrate Negative (Negative) Urine Bilirubin Negative (Negative) Urine Urobilinogen 0.2 (<2.0) mg/dL Add Ur Microanalysis Reviewed Leukocyte Esterase Rfl Negative (Negative) TEJAS/UL Urine RBC 6-10 H (0-2) /hpf Urine WBC 0-5 (0-3) /hpf Ur Squamous Epith Cells Moderate (Few) /hpf Urine Bacteria 1+ H /hpf Urine Casts 0-2 Urine Test Negative <Saeed Phillips MD - Last Filed: 11/16/24 22:41> Imaging Data Attestation: I personally reviewed and interpreted this imaging study as follows: <Saeed Phillips MD - Last Filed: 11/16/24 22:41> Radiologist's impression: Impressions Head CT 11/16/24 18:14 IMPRESSION: 1. No acute intracranial findings. <Saeed Phillips MD - Last Filed: 11/16/24 22:41> Discharge Plan Discharge Clinical Impression: Vertigo <Yaritza Min APRN - Last Filed: 11/16/24 17:15> Patient Disposition: Home <Yaritza Min APRN - Last Filed: 11/16/24 17:15> Condition: Stable <Yaritza Min APRN - Last Filed: 11/16/24 17:15> Instructions: Antibiotic Form, Meclizine (By mouth), Benign Paroxysmal Positional Vertigo (ED) <Yaritza Min APRN - Last Filed: 11/16/24 17:15> Additional Instructions: Take meclizine as prescribed. Follow-up with your PCP in the next week for re-evaluation. Monitor your when you take this and breastfeed. Return to the ED for any new or worsening symptoms. <Yaritza Min APRN - Last Filed: 11/16/24 17:15> Patient Language: Czech <Yaritza Min APRN - Last Filed: 11/16/24 17:15> Prescriptions: New meclizine 25 mg tablet 25 mg PO BID PRN (Reason: dizziness) Qty: 30 0RF No Action clindamycin phosphate 1 % solution 1 applic topical BID 7 Days Qty: 60 0RF <Yaritza Min APRN - Last Filed: 11/16/24 17:15> Follow-up/Referrals: PHYSICIAN NOT ON STAFF,NONSTAFF [Non-Staff] <Yaritza Min APRN - Last Filed: 11/16/24 17:15>
[2024-11-16 17:29] LABS: Hematocrit 40.2 % (37.0-47.0); Hemoglobin 13.5 g/dL (12.0-15.0); Immature Granulocyte Percent A 0.2 % (0-0.5); Lymphocytes Absolute Auto 2.35 K/mm3 (0.9-3.2); Mean Corpuscular HGB Conc 33.6 g/dl (32-36); Mean Corpuscular Hemoglobin 31.8 pg (26-34); Mean Corpuscular Volume 94.6 fl (80-100); Nucleated Red Blood Cells Absolute Auto 0.000 K/mm3 (0.0-0.012); Nucleated Red Blood Cells Perc 0.0 % (0.0-0.2); Platelet Count Result 287 k/mm3 (150-375); Red Blood Count 4.25 M/mm3 (4.2-5.4); White Blood Count 6.2 K/mm3 (4.5-10.0)
[2024-11-16 17:39] LABS: Alanine Aminotransferase 33 U/L (6-35); Albumin Level 4.9 g/dL (3.5-5.1); Alkaline Phosphatase 63 U/L (38-126); Anion Gap 9 mmol/L (4-12); Aspartate Amino Transferase 29 U/L (14-36); Bilirubin,Total 0.3 mg/dL (0.2-1.3); Blood Urea Nitrogen 15 mg/dL (7-17); Calcium 9.0 mg/dL (8.4-10.2); Carbon Dioxide 26 mmol/L (22-30); Chloride 103 mmol/L (98-107); Estimated CRCL calculation 134 ml/min; Estimated Glomerular Filt Rate > 60; Glucose 126 mg/dL (65-110); Potassium 4.0 mmol/L (3.4-5.0); Sodium 138 mmol/L (137-145); Total Protein 8.3 g/dL (6.3-8.2)
[2024-11-16 19:18] LABS: Pregnancy On Board Control Positive
[2024-11-16 19:39] LABS: Add Urine Microscopic? YES; Appearance Urine Cloudy (Clear); Glucose Urine UA Negative (Negative); Leukocyte Esterase Ur Negative LEU/UL (Negative); Need Manual Microscopic Reviewed; Nitrate Urine Negative (Negative); Non Pathogenic Casts 0-2; Specific Grav Ur 1.023 (1.001-1.035)
[2024-11-16 20:35] VITALS: PULSE 83
[2024-11-16] MEDS: MECLIZINE HCL 25 MG TABLET PO (21:19)
[2024-11-16 21:20] VITALS: BP 126/88; PULSE 73; RESP 15; TEMP 37.1; O2SAT 96
== END 2024-11-16 21:28 | disposition home or self-care (01) ==
PROVIDERS: Registered Nurse; Emergency Provider Student in an Organized Health Care Education/Training Program
DX: R42 Dizziness and giddiness (principal)
CPT/HCPCS: 36415; 70450; 80053; 81001; 81025; 85025; 99284; A9270